=== PATIENT | female | born 1970 | race Caucasian/White ===

== ENCOUNTER 2020-09-13 14:02 | Outpatient (CLI) | payer BC, SELFPAY ==
--- NOTE | 2020-09-13 14:10 | MM_ITS ---
WS: [id number] BILATERAL SCREENING DIGITAL MAMMOGRAM WITH CAD HISTORY: SCREENING COMPARISON: 06/03/2016 and 05/25/2012 Bilateral CC and MLO views submitted. Computer aided detection analyzed. Breast composition: The breasts are heterogeneously dense, which may obscure small masses. No suspici ous masses, microcalcifications or architectural distortion. Stable asymmetry upper-outer quadrant of the RIGHT breast. MM/[id number] IMPRESSION: BI-RADS: 2-Benign FOLLOW UP: 1 Year Follow-up
== END 2020-09-13 14:03 | disposition home or self-care (01) ==
LOC: RADSHAW 14:08
PROVIDERS: PCP Family Medicine; Visit Provider Family Medicine
DX: Z12.31 Encounter for screening mammogram for malignant neoplasm of breast (principal)
CPT/HCPCS: 77067

== ENCOUNTER 2021-10-12 12:54 | Outpatient (CLI) | payer BC, SELFPAY ==
--- NOTE | 2021-10-12 13:19 | MM_ITS ---
WS: [id number] BILATERAL 3D TOMOSYNTHESIS DIGITAL SCREENING MAMMOGRAPHY WITH CAD CLINICAL INFORMATION: SCREENING HISTORY: Screening mammogram. No current complaints. COMPARISON: September 13, 2020 TECHNIQUE: Bilateral CC and MLO views. FINDINGS: Scattered fibroglandular densities bilaterally. A few incidental punctate calcifications. No suspicio us focal mass, asymmetry, calcifications, or architectural distortion. No evidence of malignancy. MM/[id number] IMPRESSION: BI-RADS: 2-Benign FOLLOW UP: 1 Year Follow-up Recommend return to annual screening mammography.
== END 2021-10-12 12:55 | disposition home or self-care (01) ==
LOC: RAD 12:56
PROVIDERS: PCP Family Medicine; Visit Provider Family Medicine
DX: Z12.31 Encounter for screening mammogram for malignant neoplasm of breast (principal)
CPT/HCPCS: 77063; 77067

== ENCOUNTER 2022-03-27 06:21 | Outpatient (CLI) | payer BC, SELFPAY ==
--- NOTE | 2022-03-27 06:30 | US_ITS ---
WS: [id number] Complete ABDOMINAL ULTRASOUND HISTORY: R10.30 - Lower abdominal pain, unspecified COMPARISON: None available. Liver: 13.2 cm in length. Liver is normal size and echogenicity with no mass or intrahepatic dilatati on. Portal Vein: Normal hepatopetal flow with monophasic waveform. Gallbladder: Normally distended with no gallstones, wall thickening or pericholecystic fluid. Gallbladder wall thickness: 0.2 cm. Pancreas: Normal size and echogenicity. CBD: 0.2 cm. Right kidney: 10.6 cm x 4.6 cm x 3.6 cm. No mass, cortical thickening or hydronephrosis. Left kidney: 11.1 cm x 3.5 cm x 4.5 cm. No mass, cortical thickening or hydronephrosis. Spleen: Normal size and echogenicity. Abdominal aorta and IVC are within normal limits. No ascites. US/US abdomen complete* [id number] IMPRESSION: Normal complete abdomen ultrasound.
== END 2022-03-27 06:22 | disposition home or self-care (01) ==
PROVIDERS: PCP Family Medicine; Visit Provider Family Medicine
DX: R10.30 Lower abdominal pain, unspecified (principal)
CPT/HCPCS: 76700

== ENCOUNTER → 2022-10-23 13:14 | Outpatient (BNVA) | payer BC, SELFPAY | PROVIDERS: PCP Family Medicine; Visit Provider Nurse Practitioner | DX: R23.3 Spontaneous ecchymoses (principal); R61 Generalized hyperhidrosis | CPT/HCPCS: 71046 ==

== ENCOUNTER 2022-11-14 16:49 | Outpatient (CLI) | payer BC, SELFPAY ==
--- NOTE | 2022-11-14 | CTR_ITS ---
PROCEDURE INFORMATION: Exam: CT Abdomen And Pelvis Without Contrast Exam date and time: 11/14/2022 5:00 PM Age: 52 years old Clinical indication: Condition or disease; Other: Hyperhidrosis; Primary cancer: Unterine; Prior surgery; Surgery date: 6+ months; Patient HX: Excessive hot flashes, HX partial hysterectomy TECHNIQUE: Imaging protocol: Computed tomography of the abdomen and pelvis without contrast. Radiation optimization: All CT scans at this facility use at least one of these dose optimization techniques: automated exposure control; mA and/or kV adjustment per patient size (includes targeted exams where dose is matched to clinical indication); or iterative reconstruction. REPORTING DATA: Count of CT and Cardiac NM exams in prior 12 months: This patient has received 0 known CTs and 0 known cardiac nuclear medicine studies in the 12 months prior to the current study. COMPARISON: US abdomen complete* [id number] 03/27/2022 6:52 AM RADIATION DOSE METRICS: Total DLP (mGy-cm): 308.92 FINDINGS: Lungs: The visualized lung bases are clear Liver: Normal. No mass. Gallbladder and bile ducts: Normal. No calcified stones. No ductal dilation. Pancreas: Normal. No ductal dilation. Spleen: Normal. No splenomegaly. Adrenal glands: Normal. No mass. Kidneys and ureters: Subcentimeter cortical cyst left kidney. This is too small to further characterize Stomach and bowel: Nondistended fluid-filled loops of distal small bowel. Mild colonic diverticulosis Appendix: The appendix is visualized and appears normal Intraperitoneal space: Unremarkable. No free air. No significant fluid collection. Vasculature: Unremarkable. No abdominal aortic aneurysm. Lymph nodes: Unremarkable. No enlarged lymph nodes. Urinary bladder: Unremarkable as visualized. Reproductive: The uterus is surgically absent Bones/joints: Unremarkable. No acute fracture. Soft tissues: Unremarkable. CT/CT abdomen pelvis wo con [id number] IMPRESSION: 1. No acute abnormality is appreciated. There are nondistended fluid-filled loops of distal small bowel which may relate to ileus. There is mild colonic diverticulosis without evidence of diverticulitis. 2. Status post hysterectomy surgical change. No abnormal lesions in the surgical bed. COMMENTS: Consistent with the [employer]'s Incidental Findings Committee white paper (J Am Fior Radiol 2018): Any incidental renal lesion less than 1 cm or classified as too small to characterize, or any incidental cystic renal lesion characterized as simple-appearing, is likely benign. No follow-up imaging is recommended for these lesions per consensus recommendations based on imaging criteria.
== END 2022-11-14 16:50 | disposition home or self-care (01) ==
LOC: RAD 16:49
PROVIDERS: PCP Family Medicine; Visit Provider Nurse Practitioner
DX: R61 Generalized hyperhidrosis (principal); R23.2 Flushing; K57.90 Diverticulosis of intestine, part unspecified, without perforation or abscess without bleeding; Z90.711 Acquired absence of uterus with remaining cervical stump; Z85.9 Personal history of malignant neoplasm, unspecified
CPT/HCPCS: 74176

== ENCOUNTER → 2023-11-07 17:15 | Outpatient (BNVA) | payer BC, SELFPAY | PROVIDERS: PCP Family Medicine; Visit Provider Nurse Practitioner Family | DX: R10.30 Lower abdominal pain, unspecified (principal) | CPT/HCPCS: 81000 ==

== ENCOUNTER 2023-11-11 12:58 | Outpatient (CLI) | payer BC, SELFPAY ==
[2023-11-11] MEDS: iohexol 350 mg/mL 500 mL Btl (per mL) IV (13:14)
--- NOTE | 2023-11-11 13:30 | CTR_ITS ---
PROCEDURE INFORMATION: Exam: CT Abdomen And Pelvis With Contrast Exam date and time: 11/11/2023 1:06 PM Age: 53 years old Clinical indication: Localized; Right lower quadrant (rlq); Prior surgery; Surgery date: 6+ months; Surgery type: Hyst; Patient HX: Right lower abdominal pain since 6-30; Additional info: R10.30 - lower abdominal pain, unspecified TECHNIQUE: Imaging protocol: Computed tomography of the abdomen and pelvis with contrast. Radiation optimization: All CT scans at this facility use at least one of these dose optimization techniques: automated exposure control; mA and/or kV adjustment per patient size (includes targeted exams where dose is matched to clinical indication); or iterative reconstruction. Contrast material: OMNIPAQUE 350; Contrast volume: 100 ml; Contrast route: INTRAVENOUS (IV); COMPARISON: CT abdomen pelvis wo con [id number] 11/14/2022 5:00 PM RADIATION DOSE METRICS: Total DLP (mGy-cm): 318.05 FINDINGS: Liver: 21 cm mild hepatomegaly. Gallbladder and biliary ducts: Normal. No calcified stones. No ductal dilation. Pancreas: Normal. No ductal dilation. Spleen: Normal. No splenomegaly. Adrenal glands: Normal. No mass. Kidneys and ureters: Tiny renal cysts are present. Stomach and bowel: There is a mild inflammatory stranding with a small phlegmon adjacent to the mid sigmoid colon (coronal images 5-16) and acute diverticulitis is present. Appendix: No evidence of appendicitis. Intraperitoneal space: Unremarkable. No free air. No significant fluid collection. Vasculature: Unremarkable. No abdominal aortic aneurysm. Lymph nodes: Unremarkable. No enlarged lymph nodes. Urinary bladder: Unremarkable as visualized. Reproductive: Unremarkable as visualized. Bones/joints: Unremarkable. No acute fracture. Soft tissues: Unremarkable. CT/CT abdomen pelvis w con* [id number] IMPRESSION: Mild acute sigmoid diverticulitis. COMMENTS: Consistent with the [employer]'s Incidental Findings Committee white paper (J Am Fior Radiol 2018): Any incidental renal lesion less than 1 cm or classified as too small to characterize, or any incidental cystic renal lesion characterized as simple-appearing, is likely benign. No follow-up imaging is recommended for these lesions per consensus recommendations based on imaging criteria.
== END 2023-11-11 12:59 | disposition home or self-care (01) ==
LOC: RAD 12:59
PROVIDERS: PCP Family Medicine; Visit Provider Nurse Practitioner Family
DX: K57.33 Diverticulitis of large intestine without perforation or abscess with bleeding (principal); R10.30 Lower abdominal pain, unspecified; Q61.02 Congenital multiple renal cysts; R19.00 Intra-abdominal and pelvic swelling, mass and lump, unspecified site; Z90.710 Acquired absence of both cervix and uterus
CPT/HCPCS: 74177; Q9967

== ENCOUNTER → 2024-01-01 09:03 | Outpatient (BNVA) | payer BC, SELFPAY | PROVIDERS: PCP Family Medicine; Visit Provider Family Medicine | DX: K57.92 Diverticulitis of intestine, part unspecified, without perforation or abscess without bleeding (principal) | CPT/HCPCS: 81000 ==

== ENCOUNTER → 2025-02-02 09:14 | Outpatient (BNVA) | payer BC, SELFPAY | PROVIDERS: PCP Family Medicine; Visit Provider Nurse Practitioner Family | DX: M25.551 Pain in right hip (principal); M25.552 Pain in left hip; G89.29 Other chronic pain | CPT/HCPCS: 73523 ==